=== PATIENT | female | born 1990 | race Caucasian/White ===

== ENCOUNTER 2018-12-16 18:29 | Inpatient (IN) | payer OTHER, MEDICAID ==
[~2018-12-16] VITALS: Ht 157.5 cm; Wt 68.9 kg
[2018-12-16] MEDS ORDERED: SODIUM CHLORIDE 0.9% 1,000 ML IV ONE (18:48)
[2018-12-16] MEDS ORDERED: ONDANSETRON HCL 4MG/2ML INJ IV ONE (19:00)
[2018-12-16] MEDS ORDERED: FAMOTIDINE 20MG/2ML VIAL IV ONE (19:00)
[2018-12-16 19:23] LABS: BASOPHILS % 0.3 % (0.0-2.0); EOSINOPHILS % 0.7 % (0.0-5.0); HEMATOCRIT. 42.1 % (36.0-48.0); HEMOGLOBIN. 14.3 g/dL (12.0-16.0); LYMPHOCYTES % 22.9 % (20.0-50.0); MEAN CORPUSCULAR HEMOGLOBIN 34.5 pg (28.0-32.0); MEAN CORPUSCULAR VOLUME 101.8 fL (81.0-99.0); MEAN PLATELET VOLUME 7.4 fl (7.4-10.4); NEUTROPHILS % 68.1 % (40.0-76.0); PLATELET 210 x1000/uL (130-400); RED BLOOD CELL COUNT 4.13 mill/uL (4.2-5.4); RED CELL DISTRIBUTION WIDTH 12.2 % (11.6-14.6)
[2018-12-16 19:28] LABS: CHLORIDE 106 mEq/L (98-107)
[2018-12-16 20:21] LABS: B-HCG QUANTITATIVE 69093 mIU/mL (<3)
[2018-12-16] MEDS ORDERED: ACETAMINOPHEN 325MG TABLET PO ONE (20:45)
[2018-12-17] MEDS: ONDANSETRON HCL 4MG/2ML INJ IV PRN ×2 (00:55→12:15)
[2018-12-17] MEDS: SODIUM CHLORIDE 0.9% 1,000 ML IV SCH ×2 (02:41→14:14)
[2018-12-17 07:00] LABS: CLARITY URINE CLOUDY (CLEAR); COLOR URINE YELLOW (YELLOW); KETONES URINE 3+ (NEGATIVE); LEUKOCYTE ESTERASE URINE 1+ (NEGATIVE); NITRITE URINE NEGATIVE (NEGATIVE); OCCULT BLOOD URINE 1+ (NEGATIVE); PROTEIN URINE NEGATIVE (NEGATIVE); SPECIFIC GRAVITY URINE 1.027 (1.005-1.030); UROBILINOGEN URINE 0.2 E.U./dL (0.2-1.0)
[2018-12-17 07:12] LABS: *AMPHETAMINES SCREEN URINE NEGATIVE (NEGATIVE); *BARBITURATES SCREEN URINE NEGATIVE (NEGATIVE); *BENZODIAZEPINES SCREEN URINE NEGATIVE (NEGATIVE); *COCAINE SCREEN URINE NEGATIVE (NEGATIVE); METHADONE URINE SCREEN NEGATIVE (NEGATIVE); OPIATES URINE SCREEN NEGATIVE (NEGATIVE)
[2018-12-17 07:13] LABS: CANNABINOID URINE SCREEN NEGATIVE (NEGATIVE); PHENCYCLIDINE URINE SCREEN NEGATIVE (NEGATIVE)
[2018-12-17 08:00] VITALS: BP 101/62
[2018-12-17 11:10] VITALS: BP 101/62
[2018-12-17] MEDS ORDERED: ACETAMINOPHEN 325MG TABLET PO PRN (12:15)
[2018-12-17 12:30] VITALS: BP 101/62
[2018-12-17 15:22] VITALS: BP 101/62
[2018-12-17 16:00] VITALS: BP 100/61
== END 2018-12-17 16:23 | disposition home or self-care (01) | DRG 563 ==
LOC: ER 18:29 → EDBEDREQ 21:09 → EDBEDREQTM 21:09 → 6WST 21:14 → EDBEDREQ 21:15 → EDBEDREQTM 21:16 → SUPCPDRO 12-17 00:15 → ENRESERV 12-17 10:01
PROVIDERS: ADMIT Hospitalist; ATTEND Hospitalist
DX: O20.8 Other hemorrhage in early pregnancy (principal); E87.6 Hypokalemia; O99.281 Endocrine, nutritional and metabolic diseases complicating pregnancy, first trimester; Z3A.08 8 weeks gestation of pregnancy
CPT/HCPCS: 36415; 70551; 72141; 76830; 76856; 80305; 83735; 84484; 84702; 86850; 86900; 93005; 96374; 96375; 99285; J2405; J3490; J7030

== ENCOUNTER 2019-06-12 00:34 | Observation (INO) | payer MEDICAID ==
[~2019-06-12] VITALS: Ht 157.5 cm; Wt 71.7 kg
[2019-06-12] MEDS ORDERED: LACTATED RINGERS 1,000 ML IV SCH (00:54)
[2019-06-12 01:18] LABS: CHLORIDE 110 mEq/L (98-107)
[2019-06-12 01:20] LABS: BASOPHILS % 0.1 % (0.0-2.0); EOSINOPHILS % 0.2 % (0.0-5.0); HEMATOCRIT. 34.1 % (36.0-48.0); HEMOGLOBIN. 11.8 g/dL (12.0-16.0); LYMPHOCYTES % 9.2 % (20.0-50.0); MEAN CORPUSCULAR HEMOGLOBIN 35.2 pg (28.0-32.0); MEAN CORPUSCULAR VOLUME 102.2 fL (81.0-99.0); MEAN PLATELET VOLUME 7.8 fl (7.4-10.4); MONOCYTES % 2.2 % (2.0-8.0); NEUTROPHILS % 88.3 % (40.0-76.0); PLATELET 121 x1000/uL (130-400); RED BLOOD CELL COUNT 3.33 mill/uL (4.2-5.4); RED CELL DISTRIBUTION WIDTH 12.1 % (11.6-14.6)
[2019-06-12 01:23] LABS: CLARITY URINE CLEAR (CLEAR); COLOR URINE YELLOW (YELLOW); KETONES URINE TRACE (NEGATIVE); LEUKOCYTE ESTERASE URINE 1+ (NEGATIVE); NITRITE URINE NEGATIVE (NEGATIVE); OCCULT BLOOD URINE TRACE (NEGATIVE); PROTEIN URINE NEGATIVE (NEGATIVE); SPECIFIC GRAVITY URINE 1.013 (1.005-1.030); UROBILINOGEN URINE 0.2 E.U./dL (0.2-1.0)
[2019-06-12 01:34] LABS: *BARBITURATES SCREEN URINE NEGATIVE (NEGATIVE)
[2019-06-12 01:35] LABS: *AMPHETAMINES SCREEN URINE NEGATIVE (NEGATIVE); *BENZODIAZEPINES SCREEN URINE NEGATIVE (NEGATIVE); *COCAINE SCREEN URINE NEGATIVE (NEGATIVE); METHADONE URINE SCREEN NEGATIVE (NEGATIVE); OPIATES URINE SCREEN NEGATIVE (NEGATIVE)
[2019-06-12 01:36] LABS: CANNABINOID URINE SCREEN NEGATIVE (NEGATIVE); PHENCYCLIDINE URINE SCREEN NEGATIVE (NEGATIVE)
[2019-06-12] MEDS ORDERED: CEFAZOLIN 2,000 MG in DEXT 5% WATER 100 ML IV NR (03:00)
[2019-06-12] MEDS ORDERED: ACETAMINOPHEN 325MG TABLET PO NR (03:45)
[2019-06-12] MEDS ORDERED: CEPH-569 MT (04:44)
== END 2019-06-12 04:55 | disposition home or self-care (01) ==
LOC: 8 EST LDRP 00:34
PROVIDERS: ADMIT Obstetrics & Gynecology; ATTEND Obstetrics & Gynecology
DX: O26.893 Other specified pregnancy related conditions, third trimester (principal); R10.30 Lower abdominal pain, unspecified; M54.5 Low back pain; O62.9 Abnormality of forces of labor, unspecified; Z3A.33 33 weeks gestation of pregnancy
CPT/HCPCS: 36415; 76805; 80053; 80305; 81003; 85025; 96365; 99281; G0378; J0690; J7060; 96360; 96361

== ENCOUNTER 2019-07-23 23:48 | Inpatient (IN) | payer MEDICAID ==
[~2019-07-23] VITALS: Ht 157.5 cm; Wt 74.4 kg
[~2019-07-23 23:48] MED LIST: CEPH-569 MT
[2019-07-24] MEDS ORDERED: FERR325T6 PO (01:32)
[2019-07-24] MEDS ORDERED: PNV1TABL76 PO (01:32)
[2019-07-24] MEDS ORDERED: NALOXONE HCL 0.4 MG/ML 1ML VIAL IM PRN (03:30)
[2019-07-24] MEDS ORDERED: METHYLERGONOVINE MALEATE 0.2 MG/ML IM PRN (03:30)
[2019-07-24] MEDS ORDERED: CARBOPROST TROMETHAMINE 250 MCG/ML AMPUL IM PRN (03:30)
[2019-07-24] MEDS ORDERED: LIDOCAINE HCL 1% 20ML VIAL (Pyxis) INJ INFIL SCH (03:30)
[2019-07-24] MEDS ORDERED: BUTORPHANOL TARTRATE 2 MG/ML VIAL IV PRN (03:30)
[2019-07-24] MEDS: LACTATED RINGERS 1,000 ML IV SCH ×2 (04:45→06:06)
[2019-07-24] MEDS: DEXT 5%/LR + PITOCIN 20UNITS/L 1,000 ML IV SCH ×2 (06:03→12:30)
[2019-07-24 06:07] LABS: BASOPHILS % 0.3 % (0.0-2.0); EOSINOPHILS % 0.3 % (0.0-5.0); HEMATOCRIT. 33.9 % (36.0-48.0); HEMOGLOBIN. 11.6 g/dL (12.0-16.0); LYMPHOCYTES % 28.6 % (20.0-50.0); MEAN CORPUSCULAR HEMOGLOBIN 34.5 pg (28.0-32.0); MEAN CORPUSCULAR VOLUME 100.5 fL (81.0-99.0); MEAN PLATELET VOLUME 8.8 fl (7.4-10.4); MONOCYTES % 8.8 % (2.0-8.0); PLATELET 163 x1000/uL (130-400); RED BLOOD CELL COUNT 3.37 mill/uL (4.2-5.4); RED CELL DISTRIBUTION WIDTH 12.8 % (11.6-14.6)
[2019-07-24 06:27] LABS: PARTIAL THROMBOPLASTIN TIME 25.7 sec (23.4-31.0); PROTHROMBIN TIME 9.8 sec (9.6-11.0)
[2019-07-24 06:54] LABS: CLARITY URINE CLEAR (CLEAR); COLOR URINE YELLOW (YELLOW); KETONES URINE 1+ (NEGATIVE); LEUKOCYTE ESTERASE URINE NEGATIVE (NEGATIVE); NITRITE URINE NEGATIVE (NEGATIVE); OCCULT BLOOD URINE NEGATIVE (NEGATIVE); PROTEIN URINE NEGATIVE (NEGATIVE); SPECIFIC GRAVITY URINE 1.009 (1.005-1.030); UROBILINOGEN URINE 0.2 E.U./dL (0.2-1.0)
[2019-07-24 07:07] LABS: *AMPHETAMINES SCREEN URINE NEGATIVE (NEGATIVE); *BARBITURATES SCREEN URINE NEGATIVE (NEGATIVE); *BENZODIAZEPINES SCREEN URINE NEGATIVE (NEGATIVE); *COCAINE SCREEN URINE NEGATIVE (NEGATIVE)
[2019-07-24 07:08] LABS: CANNABINOID URINE SCREEN NEGATIVE (NEGATIVE); METHADONE URINE SCREEN NEGATIVE (NEGATIVE); OPIATES URINE SCREEN NEGATIVE (NEGATIVE); PHENCYCLIDINE URINE SCREEN NEGATIVE (NEGATIVE)
[2019-07-24] MEDS ORDERED: ROPIVACAINE HCL/PF EPIDURAL 200 ML EPI SCH (07:30)
[2019-07-24] MEDS ORDERED: RHO(D) IMMUNE GLOBULIN 300 MCG/SYR IM PRN (12:30)
[2019-07-24] MEDS ORDERED: DEXT 5%/LR + PITOCIN 20UNITS/L 1,000 ML IV SCH (12:30)
[2019-07-24] MEDS ORDERED: IBUPROFEN 400MG TABLET PO PRN (12:30)
[2019-07-24 12:52] LABS: HEPATITIS B SURFACE ANTIGEN NEGATIVE
[2019-07-24 13:45] VITALS: BP 105/70
[2019-07-24 14:15] VITALS: BP 103/70
[2019-07-24] MEDS: IBUPROFEN 800MG TABLET PO PRN (19:37)
[2019-07-24 21:15] VITALS: BP 100/59
[2019-07-25 04:35] VITALS: BP 99/66
[2019-07-25 07:32] VITALS: BP 95/53
[2019-07-25 08:11] LABS: BASOPHILS % 0.4 % (0.0-2.0); EOSINOPHILS % 0.5 % (0.0-5.0); HEMATOCRIT. 30.9 % (36.0-48.0); HEMOGLOBIN. 10.5 g/dL (12.0-16.0); LYMPHOCYTES % 23.1 % (20.0-50.0); MEAN CORPUSCULAR HEMOGLOBIN 34.4 pg (28.0-32.0); MEAN CORPUSCULAR VOLUME 101.5 fL (81.0-99.0); MEAN PLATELET VOLUME 8.5 fl (7.4-10.4); MONOCYTES % 8.3 % (2.0-8.0); NEUTROPHILS % 67.7 % (40.0-76.0); PLATELET 125 x1000/uL (130-400); RED BLOOD CELL COUNT 3.04 mill/uL (4.2-5.4); RED CELL DISTRIBUTION WIDTH 12.6 % (11.6-14.6)
[2019-07-25] MEDS: IBUPROFEN 800MG TABLET PO PRN (15:38)
[2019-07-25 16:06] VITALS: BP 97/65
[2019-07-25 21:40] VITALS: BP 112/76
[2019-07-26] MEDS ORDERED: IBUP-2029 MT (05:32)
[2019-07-26 07:15] VITALS: BP 100/63
== END 2019-07-26 11:00 | disposition home or self-care (01) | DRG 560 ==
LOC: 8 EST LDRP 23:48 → OBSVTOIN 07-24 04:00 → 8EST 07-24 13:45
PROVIDERS: ADMIT Obstetrics & Gynecology; ATTEND Obstetrics & Gynecology
PROC: 10E0XZZ Delivery of Products of Conception, External Approach (ICD-10-PCS; principal; 2019-07-24)
PROC: 0HQ9XZZ Repair Perineum Skin, External Approach (ICD-10-PCS; 2019-07-24)
PROC: 3E0R3BZ Introduction of Anesthetic Agent into Spinal Canal, Percutaneous Approach (ICD-10-PCS; 2019-07-24)
PROC: 00HU33Z Insertion of Infusion Device into Spinal Canal, Percutaneous Approach (ICD-10-PCS; 2019-07-24)
DX: O99.02 Anemia complicating childbirth (principal); D62 Acute posthemorrhagic anemia; O69.81X0 Labor and delivery complicated by cord around neck, without compression, not applicable or unspecified; O77.0 Labor and delivery complicated by meconium in amniotic fluid; O70.0 First degree perineal laceration during delivery; Z37.0 Single live birth; Z3A.39 39 weeks gestation of pregnancy
CPT/HCPCS: 36415; 76815; 80305; 81003; 86592; 86703; 86762; 86850; 86900; 87340; G0378; J0595; J2590; J2795; A4315